=== PATIENT | female | born 1990 | race Two or more races ===

== ENCOUNTER 2018-11-27 08:01 | Emergency (ER) | payer BC ==
--- NOTE | 2018-11-27 08:41 | EDM.PDOC ---
ED HPI GENERAL MEDICAL PROBLEM - General Chief Complaint: Abdominal Pain Stated Complaint: ABD AND BACK PAIN Time Seen by Provider: 11/27/18 08:22 Source of Information: Reports: Patient History Limitations: Reports: No Limitations - History of Present Illness INITIAL COMMENTS - FREE TEXT/NARRATIVE: Regina comes into [facility] ED with a 24 hour hx of RUQ pain and RCVA pain since yesterday, associated with some nausea, diarrhea, and flatulence. The back pain seems deep, exacerbates and partially remits, R sided, and radiates around to the RCM. There is no PMH of back disorder. There is no fever, chills, sweats, vomiting, or respiratory sxs. She took some back pain meds from her spouse yesterday pm, names no recalled. Her LMP November 01. Of interest, she had back pain with last and a RUQ Abd Scan was positive for gallstones last year. upper back and upper abdomen Pain Score (Numeric/FACES): 9 - Related Data Allergies Allergy/AdvReac Type Severity Reaction Status Date / Time No Known Allergies Allergy Verified 11/27/18 08:28 Home Meds: Home Meds Cholecalciferol (Vitamin D3) [Vitamin D3] 5,000 unit PO DAILY 11/27/18 [History] Levothyroxine [Synthroid] 100 mcg PO ACBREAKFAST 11/27/18 [History] ED ROS GENERAL - Review of Systems Review Of Systems: ROS reveals no pertinent complaints other than HPI. ED EXAM, GI/ABD - Physical Exam Exam: See Below Exam Limited By: No Limitations General Appearance: Alert, WD/WN, No Apparent Distress, Obese Eyes: Bilateral: Normal Appearance, EOMI Ears: Normal External Exam Nose: Normal Inspection Throat/Mouth: Normal Inspection, Normal Lips, Normal Gums, Normal Oropharynx, Normal Voice Head: Normocephalic Neck: Normal Inspection, Supple, Non-Tender Respiratory/Chest: Lungs Clear, Normal Breath Sounds, Chest Non-Tender Cardiovascular: Normal Peripheral Pulses, Regular Rate, Rhythm, No Edema, No Murmur GI/Abdominal Exam: Normal Bowel Sounds, Soft, No Organomegaly, No Distention, No Mass, Tender (RUQ) (Female) Exam: Deferred Rectal (Female) Exam: Deferred Back Exam: Normal Inspection, Other (some pain with forward bending, but no focal tenderness) Extremities: Normal Inspection, Normal Range of Motion, No Pedal Edema Neurological: Alert, Oriented, CN II-XII Intact, Normal Cognition, Normal Gait, No Motor/Sensory Deficits Psychiatric: Normal Affect, Normal Mood Skin Exam: Warm, Dry, Intact Lymphatic: No Adenopathy Course - Vital Signs Text/Narrative:: Following assessment at the [facility] ED, I proceeded with screening lab work including CBC: Hgb 12 gm, WBC 13,100, plts normal; ESR 44; CMP noting normal LFTs, CRP 2.2, amylase 55 IU, HCG neg, UA normal for age. A limited RUQ US: noted multiple small gallstones in addition to two 1.6 cm stones lodged adjacent to the cystic duct. No findings for pericholic fluid or stranding. Case was discussed with Dr Johnson who suggested revisit to ED if relapse while visiting in the [place] area, and follow up with PCP upon return for further management. Patient expressed understanding and all questions were answered. Last Recorded V/S: Last Vital Signs Temp 36.7 C 11/27/18 12:20 Pulse 65 11/27/18 12:20 Resp 16 11/27/18 12:20 BP 109/74 11/27/18 12:20 Pulse Ox 100 11/27/18 12:20 - Orders/Labs/Meds Orders: Active Orders 24 hr Category Date Time Status Abdomen Ltd [US] Stat Exams 11/27/18 09:25 Taken Labs: Laboratory Tests 11/27/18 11/27/18 11/27/18 Range/Units 08:42 08:42 08:42 WBC 13.1 H (4.5-12.0) X10-3/uL RBC 4.33 (3.23-5.20) x10(6)uL Hgb 12.0 (11.5-15.5) g/dL Hct 36.5 (30.0-51.3) % MCV 84.4 (80-96) fL MCH 27.8 (27.7-33.6) pg MCHC 32.9 (32.2-35.4) g/dL RDW 15.1 (11.5-15.5) % Plt Count 328 (125-369) X10(3)uL MPV 10.2 (7.4-10.4) fL Neut % (Auto) 56.1 (46-82) % Lymph % (Auto) 30.8 (13-37) % Grady % (Auto) 8.0 (4-12) % Eos % (Auto) 3 (1.0-5.0) % Baso % (Auto) 2 (0-2) % Neut # (Auto) 7.4 (1.6-8.3) # Lymph # (Auto) 4.0 (0.6-5.0) # Grady # (Auto) 1.0 (0.0-1.3) # Eos # (Auto) 0.4 (0.0-0.8) # Baso # (Auto) 0.3 H (0.0-0.2) # ESR 44 H (0-20) mm/hr Sodium 138 (135-145) mmol/L Potassium 4.4 (3.5-5.3) mmol/L Chloride 102 (100-110) mmol/L Carbon Dioxide 25 (21-32) mmol/L BUN 14 (7-18) mg/dL Creatinine 1.1 H (0.55-1.02) mg/dL Est Cr Clr Drug Dosing 73.38 mL/min Estimated GFR (MDRD) 59 L (>60) BUN/Creatinine Ratio 12.7 (9-20) Glucose 89 (80-116) mg/dL Calcium 9.3 (8.6-10.2) mg/dL Total Bilirubin 0.3 (0.1-1.3) mg/dL AST 19 (5-25) IU/L ALT 18 (12-36) U/L Alkaline Phosphatase 97 (56-112) IU/L C-Reactive Protein 2.2 H (0.5-0.9) mg/dL Total Protein 8.6 H (6.0-8.0) g/dL Albumin 3.9 (3.5-5.2) g/dL Globulin 4.7 g/dL Albumin/Globulin Ratio 0.8 Amylase (25-115) U/L HCG, Quant < 5 L (<5) mIU/mL Urine Color (YELLOW) Urine Appearance (CLEAR) Urine pH (5.0-6.5) Ur Specific [place] (1.010-1.025) Urine Protein (NEGATIVE) mg/dL Urine Glucose (UA) (NORMAL) mg/dL Urine Ketones (NEGATIVE) mg/dL Urine Occult Blood (NEGATIVE) Urine Nitrite (NEGATIVE) Urine Bilirubin (NEGATIVE) Urine Urobilinogen (NEGATIVE) mg/dL Ur Leukocyte Esterase (NEGATIVE) Urine RBC (0-5) Urine WBC (0-5) Ur Squamous Epith Cells (NS,R,O) Urine Bacteria (NS) 11/27/18 11/27/18 Range/Units 08:42 08:43 WBC (4.5-12.0) X10-3/uL RBC (3.23-5.20) x10(6)uL Hgb (11.5-15.5) g/dL Hct (30.0-51.3) % MCV (80-96) fL MCH (27.7-33.6) pg MCHC (32.2-35.4) g/dL RDW (11.5-15.5) % Plt Count (125-369) X10(3)uL MPV (7.4-10.4) fL Neut % (Auto) (46-82) % Lymph % (Auto) (13-37) % Grady % (Auto) (4-12) % Eos % (Auto) (1.0-5.0) % Baso % (Auto) (0-2) % Neut # (Auto) (1.6-8.3) # Lymph # (Auto) (0.6-5.0) # Grady # (Auto) (0.0-1.3) # Eos # (Auto) (0.0-0.8) # Baso # (Auto) (0.0-0.2) # ESR (0-20) mm/hr Sodium (135-145) mmol/L Potassium (3.5-5.3) mmol/L Chloride (100-110) mmol/L Carbon Dioxide (21-32) mmol/L BUN (7-18) mg/dL Creatinine (0.55-1.02) mg/dL Est Cr Clr Drug Dosing mL/min Estimated GFR (MDRD) (>60) BUN/Creatinine Ratio (9-20) Glucose (80-116) mg/dL Calcium (8.6-10.2) mg/dL Total Bilirubin (0.1-1.3) mg/dL AST (5-25) IU/L ALT (12-36) U/L Alkaline Phosphatase (56-112) IU/L C-Reactive Protein (0.5-0.9) mg/dL Total Protein (6.0-8.0) g/dL Albumin (3.5-5.2) g/dL Globulin g/dL Albumin/Globulin Ratio Amylase 55 (25-115) U/L HCG, Quant (<5) mIU/mL Urine Color Yellow (YELLOW) Urine Appearance Clear (CLEAR) Urine pH 5.0 (5.0-6.5) Ur Specific [place] 1.010 (1.010-1.025) Urine Protein Negative (NEGATIVE) mg/dL Urine Glucose (UA) Normal (NORMAL) mg/dL Urine Ketones Negative (NEGATIVE) mg/dL Urine Occult Blood Negative (NEGATIVE) Urine Nitrite Negative (NEGATIVE) Urine Bilirubin Negative (NEGATIVE) Urine Urobilinogen Normal (NEGATIVE) mg/dL Ur Leukocyte Esterase Negative (NEGATIVE) Urine RBC 0-5 (0-5) Urine WBC 0-5 (0-5) Ur Squamous Epith Cells Rare (NS,R,O) Urine Bacteria Few H (NS) Departure - Departure Time of Disposition: 12:23 Disposition: Home, Self-Care 01 Condition: Fair Clinical Impression: Cholelithiasis - Discharge Information Instructions: Flank Pain, Adult, Gallbladder Eating Plan Referrals: PCP,Not In Area [Primary Care Provider] - Forms: ED Department Discharge Additional Instructions: STAY ON CLEAR LIQUID DIET TODAY UNTIL THE DOCTOR CALL YOU FOR YOUR ULTRASOUND RESULT. - Problem List & Annotations (1) Cholelithiasis SNOMED Code(s): 528702756 Code(s): K80.20 - CALCULUS OF GALLBLADDER W/O CHOLECYSTITIS W/O OBSTRUCTION Status: Acute Annotation/Comment:: Follow up in ED while visiting or with PCP upon return to home. Qualifiers: Cholelithiasis location: gallbladder Cholecystitis presence: without cholecystitis Biliary obstruction: without biliary obstruction Qualified Code(s): K80.20 - Calculus of gallbladder without cholecystitis without obstruction - Problem List Review Problem List Initiated/Reviewed/Updated: Yes - My Orders Last 24 Hours: My Active Orders 11/27/18 09:25 [employer] [[place]] Stat - Assessment/Plan Last 24 Hours: My Active Orders 11/27/18 09:25 [employer] [[place]] Stat Plan: Follow up in ED while visiting, or at home with PCP.
== END 2018-11-27 12:28 | disposition home or self-care (01) ==
LOC: FB.ED 08:01
DX: K80.20 Calculus of gallbladder without cholecystitis without obstruction (principal); Z79.899 Other long term (current) drug therapy
CPT/HCPCS: 36415; 76705; 80053; 81001; 82150; 84702; 85025; 85651; 86140; 99284-25